=== PATIENT | female | born 1995 | race Caucasian/White ===

== ENCOUNTER 2024-09-24 02:24 | Emergency (ER) | payer OTHER ==
[2024-09-24 02:30] VITALS: BP 109/63; PULSE 83; RESP 18; TEMP 98.4; BMI 20.7
[2024-09-24] MEDS ORDERED: DIPHTH,PERTUSS(ACELL),TET 0.5 ML DISP.SYRIN IM ONE (03:15)
[2024-09-24] MEDS: DIPHTH,PERTUSS(ACELL),TET 0.5 ML DISP.SYRIN IM ONE (03:17)
== END 2024-09-24 03:33 | disposition home or self-care (01) ==
LOC: JER 02:24
PROC: 0XQPXZZ Repair Left Index Finger, External Approach (ICD-10-PCS; principal; 2024-09-24)
DX: S61.211A Laceration without foreign body of left index finger without damage to nail, initial encounter (principal); W26.0XXA Contact with knife, initial encounter; Z23 Encounter for immunization
CPT/HCPCS: 12001-25; 90471; 90715; 99284-25

== ENCOUNTER 2024-09-24 12:48 | Emergency (ER) | payer OTHER ==
[2024-09-24 12:56] VITALS: BP 116/78; PULSE 65; RESP 16; TEMP 98; BMI 20.7
[2024-09-24] MEDS ORDERED: KETOROLAC TROMETHAMINE 30 MG/1 ML VIAL ONE (14:05)
[2024-09-24] MEDS: KETOROLAC TROMETHAMINE 30 MG/1 ML VIAL IM ONE (14:15)
== END 2024-09-24 15:07 | disposition home or self-care (01) ==
LOC: JERFT 12:48
PROC: 0XQKXZZ Repair Left Hand, External Approach (ICD-10-PCS; principal; 2024-09-24)
PROC: 3E0133Z Introduction of Anti-inflammatory into Subcutaneous Tissue, Percutaneous Approach (ICD-10-PCS; 2024-09-24)
DX: S61.411A Laceration without foreign body of right hand, initial encounter (principal); W26.0XXA Contact with knife, initial encounter
CPT/HCPCS: 73130-TC-LT-FY; 99284-25

== ENCOUNTER 2024-12-02 17:52 | Emergency (ER) | payer OTHER ==
[2024-12-02 18:07] VITALS: BP 102/61; RESP 18; TEMP 99.1; BMI 20.7
[2024-12-02] MEDS ORDERED: ONDANSETRON 4 MG/2 ML VIAL ONE (19:25)
[2024-12-02] MEDS ORDERED: ACETAMINOPHEN INJECTION 100 ML ONE (19:25)
[2024-12-02] MEDS ORDERED: FAMOTIDINE 20 MG/50 ML IVPB 20 MG/50 ML MG IVPB ONE (19:26)
[2024-12-02 19:35] LABS: HCG,QUALITATIVE URINE Negative
[2024-12-02] MEDS: ONDANSETRON 4 MG/2 ML VIAL IVPUSH ONE (19:35)
[2024-12-02] MEDS: SODIUM CHLORIDE 1,000 ML IV STA (19:35)
[2024-12-02] MEDS: ACETAMINOPHEN 1000 MG/100 ML BAG IVPB ONE (19:35)
[2024-12-02] MEDS: FAMOTIDINE 20 MG/50 ML IVPB 20 MG/50 ML MG IVPB ONE (19:35)
[2024-12-02 19:36] LABS: EPI CELLS >36 /uL (0-25.1); HYALINE CASTS 1 /uL (0-3.1); URINE APPEARANCE CLEAR; URINE BACTERIA 2036 /uL (0-1359); URINE BILIRUBIN NEGATIVE (NEGATIVE); URINE COLOR YELLOW; URINE GLUCOSE (UA) NEGATIVE (NEGATIVE); URINE KETONE TRACE (NEGATIVE); URINE LEUK ESTERASE 1+ (NEGATIVE); URINE NITRITE NEGATIVE (NEGATIVE); URINE PROTEIN NEGATIVE (NEGATIVE); URINE RBC 16 /uL (0-23.9); URINE UROBILINOGEN 0.2 mg/dL (0.2-1.0); URINE WBC 134 /uL (0-25.8)
[2024-12-02 19:59] LABS: BASO % 0.1 % (0-2.0); EOS % 4.5 % (0-4.5); HEMATOCRIT 38.3 % (32.4-45.2); LYMPH % 5.9 % (8-40); MCH 29.6 pg (25.7-33.7); MEAN CELL VOLUME 87.1 fl (80-96); MEAN PLT VOLUME 7.2 fl (7.5-11.1); MONO % 5.6 % (3.8-10.2); NEUT % 83.9 % (42.8-82.8); PLATELET COUNT 270 10^3/uL (134-434); RDW 13.1 % (11.6-15.6); WHITE BLOOD COUNT 11.9 K/mm3 (4.0-10.0)
[2024-12-02 20:42] LABS: POTASSIUM 3.8 mmol/L (3.5-5.1)
[2024-12-02 20:44] LABS: ALBUMIN 3.7 g/dl (3.4-5.0); BLOOD UREA NITROGEN 14.1 mg/dL (7-18); CALCIUM 8.8 mg/dL (8.5-10.1)
[2024-12-02 20:47] LABS: CREATININE 0.7 mg/dL (0.55-1.3)
[2024-12-02 20:48] VITALS: PULSE 90
[2024-12-02 20:49] LABS: BILIRUBIN,TOTAL 0.9 mg/dL (0.2-1); TOT PROT 7.2 g/dl (6.4-8.2)
== END 2024-12-02 20:51 | disposition home or self-care (01) ==
LOC: JER 17:52 → JERFT 17:52
PROC: 3E033GC Introduction of Other Therapeutic Substance into Peripheral Vein, Percutaneous Approach (ICD-10-PCS; principal; 2024-12-02)
PROC: 3E033GC Introduction of Other Therapeutic Substance into Peripheral Vein, Percutaneous Approach (ICD-10-PCS; 2024-12-02)
PROC: 3E033GC Introduction of Other Therapeutic Substance into Peripheral Vein, Percutaneous Approach (ICD-10-PCS; 2024-12-02)
DX: R11.2 Nausea with vomiting, unspecified (principal); B34.9 Viral infection, unspecified; R50.9 Fever, unspecified; R10.13 Epigastric pain; M79.18 Myalgia, other site; Z20.822 Contact with and (suspected) exposure to COVID-19
CPT/HCPCS: 0241U-QW; 36415; 80053; 81003; 84703; 85025; 87086; 96365; 96375; 99284-25; J0131